=== PATIENT | female | born 1970 | race Caucasian/White ===

== ENCOUNTER → 2018-09-27 | Outpatient (CLI) | payer OTHER ==
--- NOTE | 2018-09-27 21:21 | XR ---
EXAMINATION TYPE: XR foot complete RT DATE OF EXAM: 09/27/2018 COMPARISON: NONE HISTORY: Heel pain TECHNIQUE: 3 views FINDINGS: There is plantar calcaneal spurring. I see no fracture nor dislocation. Metatarsals are int act. There are no erosions. IMPRESSION: Calcaneal spurring. No fracture seen. Osteoarthritis noted in the first MP joint.
== END | disposition home or self-care (01) ==
LOC: RADXRYALE 16:46
PROVIDERS: ATTEND Internal Medicine
DX: M18.11 Unilateral primary osteoarthritis of first carpometacarpal joint, right hand (principal); M77.31 Calcaneal spur, right foot